=== PATIENT | female | born 1985 | race Caucasian/White ===

== ENCOUNTER 2016-06-25 16:13 | Emergency (ER) | payer OTHER ==
[~2016-06-25 16:13] MED LIST: OXYCODONE/ACETA1 TA1 PO; PRENATAL1 TAB PO
--- NOTE | 2016-06-25 17:12 | ED CLINICAL REPORT ---
Clinical Report - Physicians/Mid Levels [facility] [address] [place] [address] 06/25/2016 16:14 Patient: ERVIN ANDREW Time Seen: 1705 PM. Arrived- By private vehicle. Historian- patient. HISTORY OF PRESENT ILLNESS Chief Complaint: ABDOMINAL PAIN. It is described as located in the left abdomen. This started 1 weeks ago and is still present. No nausea, loss of appetite, vomiting or diarrhea. No recent travel. Similar symptoms previously: None. Recent medical care: Not recently seen/assessed. REVIEW OF SYSTEMS No constipation, black stools, hematemesis, difficulty with urination or pain with urination. No urinary frequency or bloody stools. Denies current . PAST HISTORY See nurses notes. No history of gallstones or bowel obstruction. Has not had urinary calculi. Surgeries: Prior abdominal surgery: (2 times). SOCIAL HISTORY Never smoker. No alcohol use or drug use. ADDITIONAL NOTES The nursing notes have been reviewed. PHYSICAL EXAM Vital Signs: 06/25/2016 16:42 BP: 112/67. HR: 76. RR: 18. O2 saturation: 98%. Temp: 98.7 F. Pain level now: 1/10. Have been reviewed and appear to be correct. Appearance: Alert. Oriented X3. No acute distress. Eyes: Pupils equal, round and reactive to light. Eyes normal inspection. ENT: Ears normal. Nose normal. Pharynx normal. Neck: Normal inspection. Neck supple. CVS: Normal heart rate and rhythm. Heart sounds normal. Respiratory: No respiratory distress. Breath sounds normal. Abdomen: Soft. Mild tenderness in the left side of the abdomen. No guarding, rebound tenderness or obturator or psoas sign present. Obese. No rebound tenderness or guarding. The bowel sounds are not abnormal. Back: Normal inspection. No CVA tenderness. Skin: Skin warm and dry. Normal skin color. No rash. Normal skin turgor. Extremities: Extremities exhibit normal ROM. Neuro: Oriented X 3. PROGRESS AND PROCEDURES Course of Care: Most consistent w/ abd wall strain/ hernia Not acute abdomen Mild URI sx. Patient is stable. Disposition: Discharged. Condition: stable. CLINICAL IMPRESSION Abdominal muscle strain Acute upper respiratory infection. No rhinitis, pharyngitis, tonsillitis, laryngitis or tracheitis. No croup or epiglottitis. INSTRUCTIONS Rest. Drink plenty of fluids. (Exam is consistent with a strain-which will heal on its own. Limit lifting. Use belly band for support. Planking is good to strengthen once you are healed. Heat.). Warnings: GENERAL WARNINGS: Return or contact your physician immediately if your condition worsens or changes unexpectedly, if not improving as expected, or if other problems arise. Follow-up: Follow up with your doctor in about two weeks if not better. Understanding of the discharge instructions verbalized by patient. (Electronically signed by Shante Osman A.R.N.P. 06/25/2016 17:51)
--- NOTE | 2016-06-25 17:12 | ED CLINICAL REPORT ---
Clinical Report - Physicians/Mid Levels [facility] [address] [place] [address] 06/25/2016 16:14 Patient: ERVIN ANDREW Time Seen: 1705 PM. Arrived- By private vehicle. Historian- patient. HISTORY OF PRESENT ILLNESS Chief Complaint: ABDOMINAL PAIN. It is described as located in the left abdomen. This started 1 weeks ago and is still present. No nausea, loss of appetite, vomiting or diarrhea. No recent travel. Similar symptoms previously: None. Recent medical care: Not recently seen/assessed. REVIEW OF SYSTEMS No constipation, black stools, hematemesis, difficulty with urination or pain with urination. No urinary frequency or bloody stools. Denies current . PAST HISTORY See nurses notes. No history of gallstones or bowel obstruction. Has not had urinary calculi. Surgeries: Prior abdominal surgery: (2 times). SOCIAL HISTORY Never smoker. No alcohol use or drug use. ADDITIONAL NOTES The nursing notes have been reviewed. PHYSICAL EXAM Vital Signs: 06/25/2016 16:42 BP: 112/67. HR: 76. RR: 18. O2 saturation: 98%. Temp: 98.7 F. Pain level now: 1/10. Have been reviewed and appear to be correct. Appearance: Alert. Oriented X3. No acute distress. Eyes: Pupils equal, round and reactive to light. Eyes normal inspection. ENT: Ears normal. Nose normal. Pharynx normal. Neck: Normal inspection. Neck supple. CVS: Normal heart rate and rhythm. Heart sounds normal. Respiratory: No respiratory distress. Breath sounds normal. Abdomen: Soft. Mild tenderness in the left side of the abdomen. No guarding, rebound tenderness or obturator or psoas sign present. Obese. No rebound tenderness or guarding. The bowel sounds are not abnormal. Back: Normal inspection. No CVA tenderness. Skin: Skin warm and dry. Normal skin color. No rash. Normal skin turgor. Extremities: Extremities exhibit normal ROM. Neuro: Oriented X 3. PROGRESS AND PROCEDURES Course of Care: Most consistent w/ abd wall strain/ hernia Not acute abdomen Mild URI sx. Patient is stable. Disposition: Discharged. Condition: stable. CLINICAL IMPRESSION Abdominal muscle strain Acute upper respiratory infection. No rhinitis, pharyngitis, tonsillitis, laryngitis or tracheitis. No croup or epiglottitis. INSTRUCTIONS Rest. Drink plenty of fluids. (Exam is consistent with a strain-which will heal on its own. Limit lifting. Use belly band for support. Planking is good to strengthen once you are healed. Heat.). Warnings: GENERAL WARNINGS: Return or contact your physician immediately if your condition worsens or changes unexpectedly, if not improving as expected, or if other problems arise. Follow-up: Follow up with your doctor in about two weeks if not better. Understanding of the discharge instructions verbalized by patient. (Electronically signed by Shante Osman A.R.N.P. 06/25/2016 17:51)
--- NOTE | 2016-06-25 17:12 | ED NURSING NOTES ---
Clinical Report - Nurses [facility] [address] [place] [address] 06/25/2016 16:14 Patient: ERVIN ANDREW TRIAGE Triage time 16:42 Jun 25 2016. Chief Complaint: ABDOMINAL PAIN. Alert. No acute distress. SEPSIS SCREEN: Sepsis Screen. Negative (no infection suspected/documented). --16:48 Violeta Palma R.N. 16:42 06/25/16. BP: 112/67. HR: 76. RR: 18. O2 saturation: 98%. Temp: 98.7 F. Pain level now: 02/14. --16:48 Violeta Palma R.N. Weight: 99.7 kg stated. Height/Length: 61 inches Per Patient. BMI: 41.6. --16:45 Violeta Palma R.N. Medications None. --16:44 Violeta Palma R.N. Medication/allergy information source: the patient. --16:48 Violeta Palma R.N. Allergies Penicillins. --16:45 Violeta Palma R.N. History Arrived by private vehicle. Historian: patient. Onset. (pt reports left sided lower abd pain x a week after "a sneeze fit" pain increased with bending forward, now pt has a cough and pain is increased and "sharp"). She has had a cough. 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 PAST MEDICAL HX: Immunizations: up-to-date. Last normal menstrual period- 3 weeks ago. SOCIAL HX: Never smoker. No alcohol use or drug use. No recent travel. No infectious disease exposure. No known contact with a sick individual. ABUSE ASSESSMENT: No report of abuse. SELF HARM ASSESSMENT: A self harm assessment was performed. The patient answered "no" to the question "Do you have thoughts of harming or killing yourself?". FALL RISK ASSESSMENT: Fall risk assessment completed. No fall risk identified. NUTRITIONAL RISK ASSESSMENT: The nutritional risk assessment revealed no deficiencies. FUNCTIONAL ASSESSMENT: Functional assessment: no impairments noted. LEARNING NEEDS ASSESSMENT: The learning needs assessment revealed no barriers. SKIN INTEGRITY ASSESSMENT: Skin integrity risk assessment completed. No skin integrity risk identified. --16:48 Violeta Palma R.N. ADDITIONAL SURGERIES: C section x 2. --16:45 Violeta Palma R.N. Interventions ID band on patient. --16:48 Violeta Palma R.N. PHYSICAL ASSESSMENT Ambulatory to room. Patient gowned. GENERAL / NEURO / PSYCH: Alert. Oriented X 4. Appears in no acute distress. HEENT: Mucous membranes are pink. RESPIRATORY: Respirations not labored. Breath sounds within normal limits. CVS: Capillary refill less than 2 seconds. GI / : Abdomen soft and nontender. SKIN: Skin is warm and dry. --16:52 Violeta Palma R.N. NURSING PROGRESS NOTES 16:43 06/25/2016 Site #1 started via IV antecubital space with an 20g angiocath; one attempt. Blood drawn: rainbow set. Labeled in the presence of the patient. Saline lock flushed with 10 mL saline. --16:53 Violeta Palma R.N. Reassurance given. Patient ID band checked for patient name and birthdate: patient confirmed. Instructions provided to collect clean catch urine and patient verbalized understanding. Clean catch urine collected with return of yellow-colored urine; sample sent to lab for urinalysis. Specimen labeled in the presence of the patient. Patient identifiers checked. Call light placed in reach. Side rails up. Bed placed in lowest position. Brakes of bed on. --16:53 Violeta Palma R.N. Patient waiting for evaluation. --16:53 Violeta Palma R.N. DISPOSITION / DISCHARGE Departure time: 17:Jun 25 2016. Condition at departure: improved and stable. No learning barriers present. Discharge instructions provided and reviewed with the patient. Patient verbalized understanding. Written instructions provided in Mongolian. The patient was discharged by the nurse practitioner. She was discharged home. She left the Emergency Department ambulatory and via private vehicle. Patient driving. --18:35 Maricel Anderson R.N. Locked/Released at 06/25/2016 18:35 by Maricel Anderson R.N.
--- NOTE | 2016-06-25 17:12 | ED NURSING NOTES ---
Clinical Report - Nurses [facility] [address] [place] [address] 06/25/2016 16:14 Patient: ERVIN ANDREW TRIAGE Triage time 16:42 Jun 25 2016. Chief Complaint: ABDOMINAL PAIN. Alert. No acute distress. SEPSIS SCREEN: Sepsis Screen. Negative (no infection suspected/documented). --16:48 Violeta Palma R.N. 16:42 06/25/16. BP: 112/67. HR: 76. RR: 18. O2 saturation: 98%. Temp: 98.7 F. Pain level now: 02/14. --16:48 Violeta Palma R.N. Weight: 99.7 kg stated. Height/Length: 61 inches Per Patient. BMI: 41.6. --16:45 Violeta Palma R.N. Medications None. --16:44 Violeta Palma R.N. Medication/allergy information source: the patient. --16:48 Violeta Palma R.N. Allergies Penicillins. --16:45 Violeta Palma R.N. History Arrived by private vehicle. Historian: patient. Onset. (pt reports left sided lower abd pain x a week after "a sneeze fit" pain increased with bending forward, now pt has a cough and pain is increased and "sharp"). She has had a cough. 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 PAST MEDICAL HX: Immunizations: up-to-date. Last normal menstrual period- 3 weeks ago. SOCIAL HX: Never smoker. No alcohol use or drug use. No recent travel. No infectious disease exposure. No known contact with a sick individual. ABUSE ASSESSMENT: No report of abuse. SELF HARM ASSESSMENT: A self harm assessment was performed. The patient answered "no" to the question "Do you have thoughts of harming or killing yourself?". FALL RISK ASSESSMENT: Fall risk assessment completed. No fall risk identified. NUTRITIONAL RISK ASSESSMENT: The nutritional risk assessment revealed no deficiencies. FUNCTIONAL ASSESSMENT: Functional assessment: no impairments noted. LEARNING NEEDS ASSESSMENT: The learning needs assessment revealed no barriers. SKIN INTEGRITY ASSESSMENT: Skin integrity risk assessment completed. No skin integrity risk identified. --16:48 Violeta Palma R.N. ADDITIONAL SURGERIES: C section x 2. --16:45 Violeta Palma R.N. Interventions ID band on patient. --16:48 Violeta Palma R.N. PHYSICAL ASSESSMENT Ambulatory to room. Patient gowned. GENERAL / NEURO / PSYCH: Alert. Oriented X 4. Appears in no acute distress. HEENT: Mucous membranes are pink. RESPIRATORY: Respirations not labored. Breath sounds within normal limits. CVS: Capillary refill less than 2 seconds. GI / : Abdomen soft and nontender. SKIN: Skin is warm and dry. --16:52 Violeta Palma R.N. NURSING PROGRESS NOTES 16:43 06/25/2016 Site #1 started via IV antecubital space with an 20g angiocath; one attempt. Blood drawn: rainbow set. Labeled in the presence of the patient. Saline lock flushed with 10 mL saline. --16:53 Violeta Palma R.N. Reassurance given. Patient ID band checked for patient name and birthdate: patient confirmed. Instructions provided to collect clean catch urine and patient verbalized understanding. Clean catch urine collected with return of yellow-colored urine; sample sent to lab for urinalysis. Specimen labeled in the presence of the patient. Patient identifiers checked. Call light placed in reach. Side rails up. Bed placed in lowest position. Brakes of bed on. --16:53 Violeta Palma R.N. Patient waiting for evaluation. --16:53 Violeta Palma R.N. DISPOSITION / DISCHARGE Departure time: 17:Jun 25 2016. Condition at departure: improved and stable. No learning barriers present. Discharge instructions provided and reviewed with the patient. Patient verbalized understanding. Written instructions provided in Armenian. The patient was discharged by the nurse practitioner. She was discharged home. She left the Emergency Department ambulatory and via private vehicle. Patient driving. --18:35 Maricel Anderson R.N. Locked/Released at 06/25/2016 18:35 by Maricel Anderson R.N.
--- NOTE | 2016-06-25 18:35 | ED MAR SUMMARY ---
..... Medication Administration Record [facility] [address], [place] [id number] Patient: ERVIN ANDREW Visit ID: [id number] 31y, F Weight: 99.7 kg Height/Length: 61 in BMI: 41.6 ALLERGIES: Penicillins
--- NOTE | 2016-06-25 18:35 | ED DISCHARGE INSTRUCTIONS ---
Patient: ERVIN ANDREW General Instructions [facility] VisitID: [id number] [place] [address] 31y, F Registration Date/Time: 06/25/2016 Abdominal muscle strain Acute upper respiratory infection. No rhinitis, pharyngitis, tonsillitis, laryngitis or tracheitis. No croup or epiglottitis. INSTRUCTIONS Rest. Drink plenty of fluids. (Exam is consistent with a strain-which will heal on its own. Limit lifting. Use belly band for support. Planking is good to strengthen once you are healed. Heat.). Warnings: GENERAL WARNINGS: Return or contact your physician immediately if your condition worsens or changes unexpectedly, if not improving as expected, or if other problems arise. Follow-up: Follow up with your doctor in about two weeks if not better. Understanding of the discharge instructions verbalized by patient. ADDITIONAL INFORMATION Muscle Strain, Abdomen A muscle strain is a stretching and tearing of muscle fibers. The abdomen is protected by a thick wall of muscle in the front and sides. These muscles help with twisting and bending forward. Repeated coughing, lifting heavy objects or sudden jerking movements can sometimes cause a muscle strain in the abdomen. This causes pain that is worse when you move. The area may also feel tender or be swollen and bruised. Home Care: Make an ice pack (ice cubes in a plastic bag, wrapped in a towel) and apply over the injured area for 20 minutes every 1-2 hours the first day. You should continue with ice packs 3-4 times a day for the next two days. Continue the use of ice packs for relief of pain and swelling as needed. You may use acetaminophen (Tylenol) or ibuprofen (Motrin, Advil) to control pain, unless another pain medicine was prescribed. [NOTE: If you have liver or kidney disease, a stomach ulcer or GI bleeding, talk with your doctor before using these medicines.] Follow Up with your doctor or this facility if you are not improving within the next five days. Get Prompt Medical Attention if any of the following occur: Pain increases or moves to the right lower abdomen (just below the waistline) Fever of 100.4 F (38 C) or higher, or as directed by your healthcare provider Vomiting Severe abdominal pain that spreads to the back or toward the groin Dizziness, weakness or fainting Blood in the urine Unexpected vaginal bleeding (for women) Viral Respiratory Illness [Adult] You have an Upper Respiratory Illness (URI) caused by a virus. This illness is contagious during the first few days. It is spread through the air by coughing and sneezing or by direct contact (touching the sick person and then touching your own eyes, nose or mouth). Most viral illnesses go away within 7-10 days with rest and simple home remedies. Sometimes, the illness may last for several weeks. Antibiotics will not kill a virus and are generally not prescribed for this condition. Home Care: 1) If symptoms are severe, rest at home for the first 2-3 days. When you resume activity, don't let yourself get too tired. 2) Avoid being exposed to cigarette smoke (yours or others). 3) Tylenol (acetaminophen) or ibuprofen (Advil, Motrin) will help fever, muscle aching and headache. (Persons under 18 with fever should not take aspirin since this may cause liver damage.) 4) Your appetite may be poor, so a light diet is fine. Avoid dehydration by drinking 6-8 glasses of fluids per day (water, soft drinks, juices, tea, soup). Extra fluids will help loosen secretions in the nose and lungs. 5) Prrd-[id number] cold medicines will not shorten the length of time youre sick, but they may be helpful for the following symptoms: cough (Robitussin DM); sore throat (Chloraseptic lozenges or spray); nasal and sinus congestion (Actifed, Sudafed, Chlortrimeton). Follow Up with your doctor or as advised if you dont improve over the next week. Get Prompt Medical Attention if any of the following occur: -- Cough with lots of colored sputum (mucus) or blood in your sputum -- Chest pain, shortness of breath, wheezing or have trouble breathing -- Severe headache; face, neck or ear pain -- Fever over 100.4 F (38.0 C) for more than three days -- You cant swallow due to throat pain You have been given the following additional information: Muscle Strain, Abdomen Uri, Viral, No Abx (Adult) Rest. (Electronically signed by Shante Osman A.R.N.P. 06/25/2016 17:51)
--- NOTE | 2016-06-25 18:35 | ED MAR SUMMARY ---
..... Medication Administration Record [facility] [address], [place] [id number] Patient: ERVIN ANDREW Visit ID: [id number] 31y, F Weight: 99.7 kg Height/Length: 61 in BMI: 41.6 ALLERGIES: Penicillins
--- NOTE | 2016-06-25 18:35 | ED MED RECONCILIATION SUMMARY ---
Patient: KAMRAN ERVIN Matthew Medication Reconciliation Report [facility] VisitID: [id number] [address] [place] [address] 31y, F Registration Date/Time: 06/25/2016 Weight: 99.7 kg Height/Length: 61 in. BMI: 41.6 ALLERGIES: Penicillins The patient's Home Medications are listed below: NONE. The source(s) of the original Home Medication information: patient The following Medications were given to the patient in the Emergency Department: None. The following Medications were prescribed to the patient: None.
--- NOTE | 2016-06-25 18:35 | ED MED RECONCILIATION SUMMARY ---
Patient: KAMRAN ERVIN Matthew Medication Reconciliation Report [facility] VisitID: [id number] [address] [place] [place] [address] 31y, F Registration Date/Time: 06/25/2016 Weight: 99.7 kg Height/Length: 61 in. BMI: 41.6 ALLERGIES: Penicillins The patient's Home Medications are listed below: NONE. The source(s) of the original Home Medication information: patient The following Medications were given to the patient in the Emergency Department: None. The following Medications were prescribed to the patient: None.
== END 2016-06-25 17:20 | disposition home or self-care (01) ==
LOC: ED SRH 16:13
DX: S39.011A Strain of muscle, fascia and tendon of abdomen, initial encounter (principal); J06.9 Acute upper respiratory infection, unspecified; X58.XXXA Exposure to other specified factors, initial encounter; Y93.9 Activity, unspecified; Y92.9 Unspecified place or not applicable; Y99.9 Unspecified external cause status